=== PATIENT | female | born 1965 | race Caucasian/White ===

== ENCOUNTER 2017-10-20 08:53 | Inpatient (IN) | payer MEDICARE, MEDICAID ==
[2017-10-20] VITALS (13 sets, daily range): BP systolic 98–133; BP diastolic 54–87
[~2017-10-20] VITALS: Ht 170.2 cm; Wt 90.9 kg
[2017-10-20] MEDS ORDERED: metoprolol tartrate 1mg/ml inj IV ONE (09:05)
[2017-10-20] MEDS ORDERED: aspirin 81mg tab.chew PO ONE (09:05)
[2017-10-20] MEDS: nitroGLYCERIN 0.4mg SUBLingual tab SL PRN ×2 (09:28→09:37)
[2017-10-20] MEDS ORDERED: ondansetron 4mg rapidly disintigrating tab PO ONE (09:30)
[2017-10-20 09:54] LABS: ALBUMIN 4.6 G/DL (3.4-5.0); ALBUMIN/GLOBULIN RATIO 1.3 (1.1-1.5); ANION GAP 11 (8-16); ASPARTATE AMINO TRANSFERASE 21 U/L (10-37); BILIRUBIN,TOTAL 0.6 MG/DL (0.1-1.0); BLOOD UREA NITROGEN 19 MG/DL (7-18); BUN/CREATININE RATIO 18.4 (6.6-38.0); CALCIUM 9.6 MG/DL (8.5-10.1); CHLORIDE 104 MMOL/L (99-107); CREATININE 1.03 MG/DL (0.40-0.90); GLUCOSE 166 MG/DL (70-104); POTASSIUM 4.5 MMOL/L (3.5-5.1); SODIUM 138 MMOL/L (135-145); TOTAL CARBON DIOXIDE 22.9 MMOL/L (24-32); TOTAL PROTEIN 8.2 G/DL (6.4-8.2); eGFR 56 ML/MIN
[2017-10-20 09:55] LABS: ALANINE AMINOTRANSFERASE 23 U/L (12-78); ALKALINE PHOSPHATASE 56 IU/L (46-116)
[2017-10-20] MEDS ORDERED: heparin 10,000 units/1 ML INJ IV ONE (09:55)
[2017-10-20] MEDS ORDERED: midazolam 2 mg/2 ml injection ONE (10:18)
[2017-10-20] MEDS ORDERED: fentaNYL/PF 50MCG/1 ML 2ML syringe ONE (10:18)
[2017-10-20] MEDS ORDERED: LIDOcaine 1% 30ml preserv. free vial ONE (10:18)
[2017-10-20] MEDS ORDERED: iohexol 350 MG/1 ML 200ml bottle ONE (10:19)
[2017-10-20 10:33] LABS: BASOPHILS % (AUTO) 0.4 % (0-1); EOSINOPHILS # (AUTO) 0.2 X10'3 (0-0.9); EOSINOPHILS % (AUTO) 2.9 % (0-6); HEMOGLOBIN 14.7 g/dl (12.0-16.0); LYMPHOCYTES # (AUTO) 0.9 X10'3 (1.1-4.8); LYMPHOCYTES % (AUTO) 13.3 % (21-51); MEAN CORPUSCULAR HEMOGLOBIN 31.8 PG (27.0-31.0); MEAN CORPUSCULAR HGB CONC 35.1 % (33.0-36.5); MEAN CORPUSCULAR VOLUME 90.6 FL (78-98); MEAN PLATELET VOLUME 7.9 FL (7.4-10.4); MONOCYTES # (AUTO) 0.1 X10'3 (0-0.9); NEUTROPHILS # (AUTO) 5.4 X10'3 (1.8-7.7); NEUTROPHILS % (AUTO) 81.4 % (42-75); PLATELET COUNT 224 X10'3 (140-440); RED BLOOD COUNT 4.64 X10'6 (4.20-5.60); RED CELL DISTRIBUTION WIDTH 12.8 % (11.5-14.5); WHITE BLOOD COUNT 6.6 X10'3 (4.5-11.0)
[2017-10-20] MEDS ORDERED: heparin 1,000unit/ml 10ml vial 10 ML ONE (10:47)
[2017-10-20] MEDS ORDERED: ticagrelor 90mg tablet ONE (10:56)
[2017-10-20] MEDS ORDERED: verapamil 2.5 mg/ml inj IV ONE (10:59)
[2017-10-20] MEDS ORDERED: tirofiban 5mg in NS 100mL 100 ML IV ONE (11:00)
[2017-10-20 11:24] LABS: PARTIAL THROMBOPLASTIN TIME 117 SECONDS (22-32)
[2017-10-20] MEDS ORDERED: normal saline 1000ml 1,000 ML IV ONE (12:55)
[2017-10-20] MEDS ORDERED: nitroGLYCERIN 0.4mg SUBLingual tab SL PRN (13:00)
[2017-10-20] MEDS ORDERED: OXAZEpam 15mg capsule PO PRN (13:00)
[2017-10-20] MEDS ORDERED: HYDROcodone/acetaminophen 10/325mg tab PO PRN (13:00)
[2017-10-20] MEDS ORDERED: ondansetron/PF 4mg/2ml inj IV PRN (13:00)
[2017-10-20] MEDS ORDERED: proCHLORperazine 10 MG/2 ml inj IV PRN (13:00)
[2017-10-20 13:25] LABS: CHOL/HDL RATIO 4.9 (0.00-4.99); CHOLESTEROL 207 MG/DL (0-200); HDL CHOLESTEROL 42 MG/DL (35-60); LDL CHOLESTEROL 132 MG/DL (50-100); TRIGLYCERIDES 170 MG/DL (20-135)
[2017-10-20] MEDS: tirofiban 5mg in NS 100mL 100 ML IV SCH ×2 (13:42→18:26)
[2017-10-20] MEDS: HYDROcodone/acetaminophen 5mg/325mg tablet PO PRN ×2 (14:23→19:45)
[2017-10-20] MEDS: ticagrelor 90mg tablet PO SCH ×2 (18:26→21:31)
[2017-10-20] MEDS ORDERED: metoprolol tartrate 12.5mg (1/2 tablet) PO SCH (20:00)
[2017-10-20] MEDS: atorvastatin 20mg tablet PO SCH (21:31)
[2017-10-21 03:00] VITALS: BP_SYST 111; BP_SYST 125; BP_DIAS 68; BP_DIAS 80
[2017-10-21] MEDS: tirofiban 5mg in NS 100mL 100 ML IV SCH (03:14)
[2017-10-21 05:44] LABS: ALBUMIN 3.7 G/DL (3.4-5.0); ANION GAP 10 (8-16); BLOOD UREA NITROGEN 15 MG/DL (7-18); CHLORIDE 106 MMOL/L (99-107); GLUCOSE 121 MG/DL (70-104); POTASSIUM 3.8 MMOL/L (3.5-5.1); SODIUM 140 MMOL/L (135-145); TOTAL CARBON DIOXIDE 24.1 MMOL/L (24-32); eGFR 58 ML/MIN
[2017-10-21 06:00] VITALS: BP 117/72
[2017-10-21 06:24] LABS: BASOPHILS % (AUTO) 0.4 % (0-1); EOSINOPHILS # (AUTO) 0.3 X10'3 (0-0.9); HEMOGLOBIN 14.1 g/dl (12.0-16.0); LYMPHOCYTES # (AUTO) 1.2 X10'3 (1.1-4.8); LYMPHOCYTES % (AUTO) 17.4 % (21-51); MEAN CORPUSCULAR HGB CONC 35.3 % (33.0-36.5); MEAN CORPUSCULAR VOLUME 90.6 FL (78-98); MEAN PLATELET VOLUME 7.5 FL (7.4-10.4); MONOCYTES # (AUTO) 0.4 X10'3 (0-0.9); MONOCYTES % (AUTO) 5.3 % (2-12); NEUTROPHILS # (AUTO) 4.9 X10'3 (1.8-7.7); NEUTROPHILS % (AUTO) 72.9 % (42-75); PLATELET COUNT 180 X10'3 (140-440); RED BLOOD COUNT 4.42 X10'6 (4.20-5.60); WHITE BLOOD COUNT 6.7 X10'3 (4.5-11.0)
[2017-10-21] MEDS: aspirin 81mg tab.chew PO SCH (07:31)
[2017-10-21] MEDS: ticagrelor 90mg tablet PO SCH ×2 (07:32→20:30)
[2017-10-21] MEDS: metoprolol succinate 25mg (24-HOUR) SR. Tablet PO SCH (07:32)
[2017-10-21] MEDS: HYDROcodone/acetaminophen 5mg/325mg tablet PO PRN (09:22)
[2017-10-21] MEDS ORDERED: TRAZ-146 PO (09:29)
[2017-10-21] MEDS ORDERED: PREG150C PO (09:30)
[2017-10-21] MEDS ORDERED: CYCL-1 PO (09:30)
[2017-10-21 13:52] VITALS: BP 131/85
[2017-10-21 17:27] VITALS: BP 130/85
[2017-10-21 18:00] VITALS: BP 142/85
[2017-10-21] MEDS ORDERED: cyclobenzaprine 10mg tablet PO PRN (18:25)
[2017-10-21] MEDS: atorvastatin 20mg tablet PO SCH (20:30)
[2017-10-21] MEDS ORDERED: pregabalin 75mg capsule PO SCH (21:00)
[2017-10-21] MEDS ORDERED: traZODone 50mg tablet PO SCH (21:00)
[2017-10-21] MEDS ORDERED: lisinopril 2.5mg tablet PO SCH (21:00)
[2017-10-21 22:00] VITALS: BP 82/47
[2017-10-22 02:00] VITALS: BP 97/57
[2017-10-22 05:50] LABS: BASOPHILS % (AUTO) 0.5 % (0-1); EOSINOPHILS # (AUTO) 0.3 X10'3 (0-0.9); EOSINOPHILS % (AUTO) 4.1 % (0-6); HEMATOCRIT 38.9 % (35.0-45.0); HEMOGLOBIN 13.7 g/dl (12.0-16.0); LYMPHOCYTES # (AUTO) 1.2 X10'3 (1.1-4.8); LYMPHOCYTES % (AUTO) 19.5 % (21-51); MEAN CORPUSCULAR HEMOGLOBIN 31.8 PG (27.0-31.0); MEAN CORPUSCULAR HGB CONC 35.2 % (33.0-36.5); MEAN CORPUSCULAR VOLUME 90.3 FL (78-98); MEAN PLATELET VOLUME 7.8 FL (7.4-10.4); MONOCYTES # (AUTO) 0.4 X10'3 (0-0.9); MONOCYTES % (AUTO) 6.1 % (2-12); NEUTROPHILS # (AUTO) 4.3 X10'3 (1.8-7.7); NEUTROPHILS % (AUTO) 69.8 % (42-75); PLATELET COUNT 170 X10'3 (140-440); RED BLOOD COUNT 4.31 X10'6 (4.20-5.60); RED CELL DISTRIBUTION WIDTH 12.5 % (11.5-14.5); WHITE BLOOD COUNT 6.2 X10'3 (4.5-11.0)
[2017-10-22 06:06] LABS: ALBUMIN 3.8 G/DL (3.4-5.0); ANION GAP 7 (8-16); BLOOD UREA NITROGEN 19 MG/DL (7-18); BUN/CREATININE RATIO 20.2 (6.6-38.0); CALCIUM 8.9 MG/DL (8.5-10.1); CHLORIDE 105 MMOL/L (99-107); CREATININE 0.94 MG/DL (0.40-0.90); GLUCOSE 118 MG/DL (70-104); POTASSIUM 4.1 MMOL/L (3.5-5.1); SODIUM 138 MMOL/L (135-145); TOTAL CARBON DIOXIDE 26.3 MMOL/L (24-32); eGFR 63 ML/MIN
[2017-10-22] MEDS ORDERED: ATOR80TA PO (06:20)
[2017-10-22] MEDS ORDERED: METO-395 PO (06:20)
[2017-10-22] MEDS ORDERED: NITR0.4T51 SL (06:20)
[2017-10-22] MEDS ORDERED: LISI2.5T2 PO (06:20)
[2017-10-22] MEDS ORDERED: TICA90TA PO (06:20)
[2017-10-22] MEDS ORDERED: ASPI-1265 PO (06:20)
[2017-10-22 07:00] VITALS: BP 109/69
[2017-10-22] MEDS: aspirin 81mg tab.chew PO SCH (08:09)
[2017-10-22] MEDS: ticagrelor 90mg tablet PO SCH (08:09)
[2017-10-22] MEDS: metoprolol succinate 25mg (24-HOUR) SR. Tablet PO SCH (08:09)
== END 2017-10-22 10:30 | disposition home or self-care (01) | DRG 246 ==
LOC: ER 08:54 → PCU 3S 11:52
PROVIDERS: ADMIT Internal Medicine Interventional Cardiology; ATTEND Internal Medicine Interventional Cardiology
PROC: 027034Z Dilation of Coronary Artery, One Artery with Drug-eluting Intraluminal Device, Percutaneous Approach (ICD-10-PCS; principal; 2017-10-20)
PROC: 02703ZZ Dilation of Coronary Artery, One Artery, Percutaneous Approach (ICD-10-PCS; 2017-10-20)
PROC: 4A023N7 Measurement of Cardiac Sampling and Pressure, Left Heart, Percutaneous Approach (ICD-10-PCS; 2017-10-20)
PROC: B2111ZZ Fluoroscopy of Multiple Coronary Arteries using Low Osmolar Contrast (ICD-10-PCS; 2017-10-20)
PROC: B2151ZZ Fluoroscopy of Left Heart using Low Osmolar Contrast (ICD-10-PCS; 2017-10-20)
PROC: B41F1ZZ Fluoroscopy of Right Lower Extremity Arteries using Low Osmolar Contrast (ICD-10-PCS; 2017-10-20)
DX: I21.09 ST elevation (STEMI) myocardial infarction involving other coronary artery of anterior wall (principal); I50.31 Acute diastolic (congestive) heart failure; E11.42 Type 2 diabetes mellitus with diabetic polyneuropathy; E78.5 Hyperlipidemia, unspecified; I11.0 Hypertensive heart disease with heart failure; M54.9 Dorsalgia, unspecified; F17.200 Nicotine dependence, unspecified, uncomplicated; Z90.710 Acquired absence of both cervix and uterus; Z90.49 Acquired absence of other specified parts of digestive tract; Z90.721 Acquired absence of ovaries, unilateral; Z79.82 Long term (current) use of aspirin; Z79.899 Other long term (current) drug therapy; Z71.6 Tobacco abuse counseling
CPT/HCPCS: 92920; 93306; 96365; 96375; 99291; C9606; 36415; 71045; 80048; 80053; 80061; 83880; 84484; 85025; 85730; 87070; 93005; 99152; 99153; A4620; A6257; C1725; C1769; C1874; J1644; J2250; J3010; J3246; J3490; Q9967